=== PATIENT | male | born 1940 | race Caucasian/White ===

== ENCOUNTER 2017-06-28 18:28 | Emergency (ER) | payer MEDICARE, OTHER ==
[2017-06-28 18:29] VITALS: BP 170/84; PULSE 107; RESP 18; TEMP 99; O2SAT 96
[2017-06-28] MEDS ORDERED: KETOROLAC TROMETHAMINE 60 MG/2 ML (IM) VIAL IM ONE (20:15)
[2017-06-28 20:32] LABS: AUTOMATED NEUTROPHIL # 8.3 TH/MM3 (1.8-7.7); BASOPHIL % 0.3 % (0.0-2.0); HEMATOCRIT 50.4 % (39.0-51.0); HEMOGLOBIN 17.4 GM/DL (13.0-17.0); LYMPH % 12.8 % (9.0-44.0); LYMPHOCYTE # 1.3 TH/MM3 (1.0-4.8); MEAN CELL VOLUME 88.4 FL (80.0-100.0); MEAN CORPUSCULAR HEMOGLOBIN 30.5 PG (27.0-34.0); MEAN CORPUSCULAR HGB CONC 34.5 % (32.0-36.0); MEAN PLATELET VOLUME 8.1 FL (7.0-11.0); MONOCYTE # 0.6 TH/MM3 (0-0.9); NEUT % 80.9 % (16.0-70.0); PLATELET COUNT 301 TH/MM3 (150-450); RED CELL DISTRIBUTION WIDTH 12.8 % (11.6-17.2); WHITE BLOOD COUNT 10.2 TH/MM3 (4.0-11.0)
[2017-06-28 20:49] LABS: ALBUMIN 4.1 GM/DL (3.4-5.0); AST (GOT) 20 U/L (15-37); BICARBONATE 24.7 MEQ/L (21.0-32.0); BLOOD UREA NITROGEN 15 MG/DL (7-18); CALCIUM 9.1 MG/DL (8.5-10.1); CHLORIDE 103 MEQ/L (98-107); CREATININE 1.17 MG/DL (0.60-1.30); GLOMERULAR FILTRATION RATE 60 ML/MIN (>89); GLUCOSE,RANDOM 122 MG/DL (74-106); SODIUM (NA) 137 MEQ/L (136-145)
[2017-06-28 20:51] LABS: ALT (GPT) 35 U/L (12-78)
[2017-06-28 20:52] LABS: ALKALINE PHOSPHATASE 127 U/L (45-117); TOTAL BILIRUBIN ADULT 1.1 MG/DL (0.2-1.0); TOTAL PROTEIN 8.7 GM/DL (6.4-8.2)
[2017-06-28 20:56] LABS: BILIRUBIN, URINE NEG (NEG); BLOOD, URINE NEG (NEG); GLUCOSE,URINE NEG (NEG); KETONE, URINE 10 mg/dL (NEG); MUCUS URINE FEW /lpf (OCC); NITRITE,URINE NEG (NEG); PH, URINE 6.5 (5.0-8.5); SQUAMOUS EPITHELIAL CELL URINE <1 /hpf (0-5); URINE COLOR YELLOW (YELLW/STRAW); URINE LEUKOCYTE ESTERASE NEG (NEG)
--- NOTE | 2017-06-28 23:11 | RADRPT ---
EXAM DATE/TIME: 06/28/2017 22:40 [place] COMPARISON: No previous studies available for comparison. INDICATIONS : Left flank pain. ORAL CONTRAST: No oral contrast ingested. RADIATION DOSE: 24.77 CTDIvol (mGy) MEDICAL HISTORY : Renal calculi. SURGICAL HISTORY : None. ENCOUNTER: Initial ACUITY: 1 day PAIN SCALE: 10/10 LOCATION: Left flank TECHNIQUE: Volumetric scanning of the abdomen and pelvis was performed. Using automated exposure control and ad justment of the mA and/or kV according to patient size, radiation dose was kept as low as reasonably achievable to obtain optimal diagnostic quality images. DICOM format image data is available electro nically for review and comparison. FINDINGS: Examination of the lung bases demonstrates no abnormality. No pleural fluid is identified. No pulmona ry nodules are present. The liver is normal in size and free of focal defects. Multiple calcified gra nulomas are present in the spleen. The gallbladder and pancreas are unremarkable. No intrahepatic or extrahepatic ductal dilatation is seen. The adrenal glands are unremarkable. The kidneys are normal b ilaterally without evidence of mass or hydronephrosis. No renal stones are identified. Examination of the pelvis demonstrates no evidence of free fluid or pelvic mass. No abnormally enlarg ed inguinal or retroperitoneal lymph nodes are present. The bladder is unremarkable. There is diverti culosis without evidence of diverticulitis. The prostate gland is moderately enlarged impinging on th e bladder base. CONCLUSION: 1. No evidence of acute abdominal or pelvic process. No masses are identified. No renal stones are id entified. Beto Payne MD on June 28, 2017 at 23:03 Board Certified Radiologist. This report was verified electronically.
[2017-06-29] MEDS ORDERED: AMLO10TA2 PO (00:47)
[2017-06-29] MEDS ORDERED: ATOR10TA15 PO (00:47)
[2017-06-29 00:52] VITALS: BP 174/81; PULSE 93; RESP 16; O2SAT 97
[2017-06-29] MEDS ORDERED: KETOROLAC TROMETHAMINE 30 MG/ML (IVP) VIAL IV PUSH ONE (01:00)
[2017-06-29] MEDS ORDERED: CYCLOBENZAPRINE HCL 10 MG TAB PO ONE (01:00)
[2017-06-29] MEDS ORDERED: predniSONE 50 MG TAB PO ONE (01:00)
--- NOTE | 2017-06-29 01:08 | PD ---
HPI Chief Complaint: Complaint Time Seen by Provider: 00:45 Travel History International Travel<30 days: No Contact w/Intl Traveler<30days: No Traveled to known affect area: No History of Present Illness HPI Patient is a 77 year old male who comes in complaining of left hip pain. He says the pain started after taking a walk this morning. He says he had a kidney stone 20 years ago and was concerned this was happening again. He says it is an aching pain and when he moves, he gets a sharp stabbing pain. He denies any numbness or tingling or any issues urinating. He denies fever. He says he had some nausea earlier. He took an Ibuprofen without relief of his symptoms. He denies any direct injury. Nothing seems to make his pain better. Movement makes the pain worse. PFSH Past Medical History High Cholesterol: Yes Hypertension: Yes Tetanus Vaccination: > 5 Years Past Surgical History Appendectomy: Yes Other Surgery: Yes (achilles tendon ) Social History Tobacco Use: No Substance Use: No Allergies-Medications (Allergen,Severity, Reaction): Coded Allergies: Iodinated Contrast- Oral and IV Dye (Verified Allergy, Unknown, 06/28/17) diatrizoate sodium (Verified Allergy, Unknown, 06/28/17) lisinopril (Verified Allergy, Unknown, 06/28/17) meglumine benzoate (Verified Allergy, Unknown, 06/28/17) nystatin (Verified Allergy, Unknown, 06/28/17) Uncoded Allergies: renograf (Allergy, Unknown, 06/28/17) Reported Meds & Prescriptions Reported Meds & Active Scripts Active Reported Amlodipine (Amlodipine Besylate) 10 Mg Tab 10 Mg PO DAILY Atorvastatin (Atorvastatin Calcium) 10 Mg Tab 10 Mg PO HS Review of Systems Except as stated in HPI: all other systems reviewed are Neg General / Constitutional: No: Fever, Chills HENT: No: Headaches, Lightheadedness Cardiovascular: No: Chest Pain or Discomfort Respiratory: No: Shortness of Breath Gastrointestinal: Positive: Nausea, No: Vomiting, Abdominal Pain Genitourinary: Positive: Flank Pain, No: Frequency, Dysuria Musculoskeletal: Positive: Pain Skin: No Rash, No Itching, No Change in Pigmentation Neurologic: No: Weakness, Dizziness, Sensory Disturbance Physical Exam Narrative GENERAL: Awake and alert, in no acute distress. SKIN: Focused skin assessment warm/dry. HEAD: Atraumatic. Normocephalic. EYES: Pupils equal and round. No scleral icterus. ENT: Mucous membranes pink and moist. NECK: Trachea midline. No JVD. CARDIOVASCULAR: Regular rate and rhythm. No murmur appreciated. RESPIRATORY: No accessory muscle use. Clear to auscultation. Breath sounds equal bilaterally. GASTROINTESTINAL: Abdomen soft, non-tender, nondistended. No CVA tenderness. MUSCULOSKELETAL: No obvious deformities. No clubbing. No cyanosis. No edema. Tender to palpation of the left sacroiliac area. Pain with straight leg raise on the right. NEUROLOGICAL: Awake and alert. No obvious cranial nerve deficits. Motor grossly within normal limits. Normal speech. PSYCHIATRIC: Appropriate mood and affect; insight and judgment normal. Data Data Last Documented VS Vital Signs Date Time Temp Pulse Resp B/P (MAP) Pulse Ox O2 Delivery O2 Flow Rate FiO2 06/29/17 00:52 93 16 174/81 (112) 97 Room Air 06/28/17 18:29 99.0 Orders Orders Complete Blood Count With Diff (06/28/17 19:11) Comprehensive Metabolic Panel (06/28/17 19:11) Urinalysis - C+S If Indicated (06/28/17 19:11) Ct Abd/Pel W/O Iv Contrast (06/28/17 19:11) Ketorolac Inj (Toradol Inj) (06/28/17 20:15) Ketorolac Inj (Toradol Inj) (06/29/17 01:00) Cyclobenzaprine (Flexeril) (06/29/17 01:00) Prednisone (Deltasone) (06/29/17 01:00) Ketorolac Inj (Toradol Inj) (06/29/17 01:30) Labs Laboratory Tests Test 06/28/17 20:15 06/28/17 20:20 White Blood Count 10.2 TH/MM3 Red Blood Count 5.70 MIL/MM3 Hemoglobin 17.4 GM/DL Hematocrit 50.4 % Mean Corpuscular Volume 88.4 FL Mean Corpuscular Hemoglobin 30.5 PG Mean Corpuscular Hemoglobin Concent 34.5 % Red Cell Distribution Width 12.8 % Platelet Count 301 TH/MM3 Mean Platelet Volume 8.1 FL Neutrophils (%) (Auto) 80.9 % Lymphocytes (%) (Auto) 12.8 % Monocytes (%) (Auto) 6.0 % Eosinophils (%) (Auto) 0.0 % Basophils (%) (Auto) 0.3 % Neutrophils # (Auto) 8.3 TH/MM3 Lymphocytes # (Auto) 1.3 TH/MM3 Monocytes # (Auto) 0.6 TH/MM3 Eosinophils # (Auto) 0.0 TH/MM3 Basophils # (Auto) 0.0 TH/MM3 CBC Comment DIFF FINAL Differential Comment Blood Urea Nitrogen 15 MG/DL Creatinine 1.17 MG/DL Random Glucose 122 MG/DL Total Protein 8.7 GM/DL Albumin 4.1 GM/DL Calcium Level 9.1 MG/DL Alkaline Phosphatase 127 U/L Aspartate Amino Transf (AST/SGOT) 20 U/L Alanine Aminotransferase (ALT/SGPT) 35 U/L Total Bilirubin 1.1 MG/DL Sodium Level 137 MEQ/L Potassium Level 4.0 MEQ/L Chloride Level 103 MEQ/L Carbon Dioxide Level 24.7 MEQ/L Anion Gap 9 MEQ/L Estimat Glomerular Filtration Rate 60 ML/MIN Urine Color YELLOW Urine Turbidity CLEAR Urine pH 6.5 Urine Specific [place] 1.017 Urine Protein TRACE mg/dL Urine Glucose (UA) NEG mg/dL Urine Ketones 10 mg/dL Urine Occult Blood NEG Urine Nitrite NEG Urine Bilirubin NEG Urine Urobilinogen LESS THAN 2.0 MG/DL Urine Leukocyte Esterase NEG Urine RBC LESS THAN 1 /hpf Urine WBC LESS THAN 1 /hpf Urine Squamous Epithelial Cells <1 /hpf Urine Mucus FEW /lpf Microscopic Urinalysis Comment CULT NOT INDICATED MDM Medical Decision Making Medical Screen Exam Complete: Yes Emergency Medical Condition: Yes Differential Diagnosis uti vs renal stone vs muscle strain vs sciatica Narrative Course Patient is a 77-year-old male who comes in complaining of left hip pain. Exam shows tenderness to the left sacroiliac area. IV established, labs sent. Labs show no acute abnormalities. CT abdomen and pelvis performed shows no acute abnormalities. Given Toradol, Flexeril, prednisone. This is likely arthritis versus sciatica. Patient will be discharged with prescription for Flexeril. Advised to take Tylenol or ibuprofen as well for pain. Given a prescription for prednisone. Advised follow-up with his doctor. Advised to return to the ED as needed for any worsening symptoms. Diagnosis Primary Impression: Low back pain Qualified Codes: M54.5 - Low back pain Patient Instructions: Back Pain (ED), General Instructions Additional Instructions: Take Tylenol or ibuprofen for pain. Take the Flexeril to help with the pain. Be careful as this may make you tired. Take the prednisone for the next few days to help with inflammation. Follow-up with your doctor. Return to the ED as needed for any worsening symptoms. Scripts Prednisone (Prednisone) 50 Mg Tab 50 MG PO DAILY for 3 Days, #3 TAB 0 Refills Prov: Michelle Navarro MD 06/29/17 Cyclobenzaprine (Flexeril) 10 Mg Tab 10 MG PO TID for Muscle Spasm, #15 TAB 0 Refills Prov: Michelle Navarro MD 06/29/17 Disposition: 01 DISCHARGE HOME Condition: Stable Michelle Navarro MD Jun 29, 2017 01:08
[2017-06-29] MEDS ORDERED: KETOROLAC TROMETHAMINE 60 MG/2 ML (IM) VIAL IM ONE (01:30)
[2017-06-29] MEDS ORDERED: PRED50 PO (01:52)
[2017-06-29] MEDS ORDERED: CYCL10TA PO (01:52)
== END 2017-06-29 02:06 | disposition home or self-care (01) ==
LOC: NEPC 18:28
DX: M54.5 Low back pain (principal); E78.00 Pure hypercholesterolemia, unspecified; I10 Essential (primary) hypertension
CPT/HCPCS: 74176; 80053; 81001; 85025; 96372; 99285; J1885; J7512